=== PATIENT | female | born 1980 | race Caucasian/White ===

== ENCOUNTER 2018-02-14 13:25 | Emergency (ER) | payer BC, OTHER ==
[~2018-02-14] VITALS: Ht 175.3 cm; Wt 83.9 kg
--- NOTE | 2018-02-14 14:24 | ED Chest Pain ---
General Chief Complaint: Dizziness/Syncope Stated Complaint: LIGHTHEADED/LEFT ARM TINGLING SLIGHTLY ELEV BP Nursing Triage Note: PT CO OF DIZZINESS, STATES HAS L ARM TINGLING,AND L SHOULDER PAIN. 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 DOES NOT HAVE TIME TO BE HERE Nursing Sepsis Screen: No Definite Risk Source: patient Exam Limitations: no limitations History of Present Illness Date Seen by Provider: Feb 14, 2018 Time Seen by Provider: 14:09 Initial Comments The patient presents to the ER by private conveyance with chief complaint she is having an episode of narrowing vision, numbness tingling down her left arm and some left chest and shoulder pain. This occurred about 1:30. Since she got to the ER started having some palpitations and chest pain in the middle of her chest that is since resolved. She still having shoulder pain in the tingling and numbness in her left arm. She does not smoke or use recreational drugs. No history of diabetes, hypothyroidism or cholesterol is him. No history primarily of coronary artery disease or cardiac dysrhythmias. She has no primary family history of early onset cardiac disease before the age of 60. She states she was at work having a particular stressful event when this started. She says she's had episodes in the past of heart palpitations and chest discomfort sharp pains especially down her left side of her chest lower but nothing was pronounced. She does have quite a bit of anxiety but she does not use any medicine for it. She follows with Dr. Ruiz at [place]. She is on her period presently she's had a endometrial ablation and her has had a vasectomy. Her periods have been irregular all of her life. She has no history of injury or surgeries or other problems with her neck but she does go to the chiropractor every few months to have her neck worked on. Allergies and Home Medications Allergies Coded Allergies: latex (Verified Allergy, Unknown, 02/14/18) Home Medications No Active Prescriptions or Reported Meds Patient Home Medication List Home Medication List Reviewed: Yes Review of Systems Review of Systems Constitutional: No chills, No diaphoresis EENTM: No Blurred Vision, No Double Vision Respiratory: Denies Cough, Denies Shortness of Air Cardiovascular: See HPI, Chest Pain; Denies Edema, Denies Irregular Heart Rate ; Lightheadedness, Palpitations; Denies Syncope Gastrointestinal: Denies Constipated, Denies Diarrhea, Denies Nausea, Denies Vomiting Genitourinary: Denies Burning, Denies Discharge, Denies Drainage Musculoskeletal: No back pain, No joint pain Skin: No pruritus, No rash Psychiatric/Neurological: Denies Headache, Denies Numbness; Paresthesia (left arm radial distribution) Past Vzrspsc-Mrghtb-Dbbrmr Hx Patient Social History Alcohol Use: Denies Use Recreational Drug Use: No Smoking Status: Never a Smoker Recent Foreign Travel: No Contact w/Someone Who Travel: No Recent Infectious Disease Expo: No Recent Hopitalizations: No Seasonal Allergies Seasonal Allergies: No Past Medical History Surgeries: No Respiratory: No Cardiac: No Neurological: No Genitourinary: No Gastrointestinal: No Musculoskeletal: No Endocrine: No HEENT: No Cancer: No Psychosocial: No Integumentary: No Blood Disorders: No Physical Exam Vital Signs Vital Signs - First Documented 02/14/18 13:40 Temp 97.8 Pulse 82 Resp 18 B/P (MAP) 140/99 (113) Pulse Ox 98 Capillary Refill : Less Than 3 Seconds Height, Weight, BMI Height: 5'9.00" Weight: 185lbs. oz. 83.754239rl; BMI Method:Stated General Appearance: Anxious, Mild Distress HEENT: PERRL/EOMI, Moist Mucous Membranes Neck: Full Range of Motion, Normal Inspection, Non Tender, Supple Respiratory: Chest Non Tender, Lungs Clear, Normal Breath Sounds, No Accessory Muscle Use, No Respiratory Distress Cardiovascular: Regular Rate, Rhythm, No Edema, Normal Peripheral Pulses Gastrointestinal: Normal Bowel Sounds, Non Tender, Soft Extremity: Normal Capillary Refill, Normal Inspection, Non Tender, No Pedal Edema Neurologic/Psychiatric: Alert, Oriented x3, Other (and anxious, tearful) Progress/Results/Core Measures Results/Orders Lab Results Laboratory Tests Test 02/14/18 14:30 Range/Units White Blood Count 6.2 4.3-11.0 10^3/uL Red Blood Count 4.42 4.35-5.85 10^6/uL Hemoglobin 14.1 11.5-16.0 G/DL Hematocrit 41 35-52 % Mean Corpuscular Volume 93 80-99 FL Mean Corpuscular Hemoglobin 32 25-34 PG Mean Corpuscular Hemoglobin Concent 35 32-36 G/DL Red Cell Distribution Width 12.8 10.0-14.5 % Platelet Count 289 130-400 10^3/uL Mean Platelet Volume 9.7 7.4-10.4 FL Neutrophils (%) (Auto) 71 42-75 % Lymphocytes (%) (Auto) 20 12-44 % Monocytes (%) (Auto) 7 0-12 % Eosinophils (%) (Auto) 3 0-10 % Basophils (%) (Auto) 0 0-10 % Neutrophils # (Auto) 4.4 1.8-7.8 X 10^3 Lymphocytes # (Auto) 1.2 1.0-4.0 X 10^3 Monocytes # (Auto) 0.4 0.0-1.0 X 10^3 Eosinophils # (Auto) 0.2 0.0-0.3 10^3/uL Basophils # (Auto) 0.0 0.0-0.1 10^3/uL Sodium Level 140 135-145 MMOL/L Potassium Level 4.0 3.6-5.0 MMOL/L Chloride Level 105 98-107 MMOL/L Carbon Dioxide Level 24 21-32 MMOL/L Anion Gap 11 5-14 MMOL/L Blood Urea Nitrogen 10 7-18 MG/DL Creatinine 1.08 0.60-1.30 MG/DL Estimat Glomerular Filtration Rate 57 BUN/Creatinine Ratio 9 Glucose Level 105 70-105 MG/DL Calcium Level 9.4 8.5-10.1 MG/DL Corrected Calcium 9.0 8.5-10.1 MG/DL Magnesium Level 2.3 1.8-2.4 MG/DL Total Bilirubin 0.6 0.1-1.0 MG/DL Aspartate Amino Transf (AST/SGOT) 15 5-34 U/L Alanine Aminotransferase (ALT/SGPT) 15 0-55 U/L Alkaline Phosphatase 48 40-136 U/L Myoglobin 33.6 10.0-92.0 NG/ML Troponin I < 0.30 <0.30 NG/ML Total Protein 6.8 6.4-8.2 GM/DL Albumin 4.5 3.2-4.5 GM/DL My Orders Orders - FLORIAN XAVIER Cbc With Automated Diff (02/14/18 14:16) Magnesium (02/14/18 14:16) Chest 1 View, Ap/Pa Only (02/14/18 14:16) Ekg Tracing (02/14/18 14:16) Cardiac Profile 1 (02/14/18 14:16) Comprehensive Metabolic Panel (02/14/18 14:16) Myoglobin Serum (02/14/18 14:16) Monitor-Rhythm Ecg Trace Only (02/14/18 14:16) Aspirin Chewable Tablet (Baby Aspirin Ch (02/14/18 14:30) Hydroxyzine Oral (Vistaril Capsule) (02/14/18 14:30) Medications Given in ED Current Medications Medications Dose Ordered Sig/Terry Route Start Time Stop Time Status Last Admin Dose Admin Aspirin 324 mg ONCE ONCE PO 02/14/18 14:30 02/14/18 14:31 DC 02/14/18 14:23 324 MG Vital Signs/I&O 02/14/18 13:40 Temp 97.8 Pulse 82 Resp 18 B/P (MAP) 140/99 (113) Pulse Ox 98 Blood Pressure Mean: 113 Progress Progress Note : Time: 14:23 Progress Note Symptoms consistent with a stress reaction or panic attack. We have offered her Vistaril but she says she has to drive 40 minutes home and Benadryl knocks her out so she would prefer to not take until after she is about ready to leave. We have discussed with her the low risk for any coronary or dysrhythmia but she would prefer to have a workup to alleviate her fears and then she agrees if there is nothing wrong on initial labs that she would follow-up with her primary care doctor as well as look into some other stress management, counseling, medications that we discussed at length with her. She's not having any tenderness in her neck but certainly push on the trapezius on the left side does re-create some of her tingling sensations. Her paraspinous neck muscles are very tight. She's not having any muscular wasting or anything else to suggest that this is a chronic nerve impingement. She is not having any swelling in her arm or erythema or warmth her pain palpation to suggest a DVT. She's having no subjective or objective shortness of breath or cough with hemoptysis nor she on control or smoker so risk factors and evidence for a pulmonary embolism is sufficiently low to Clinically rule her out. Initial ECG Impression Date: Feb 14, 2018 Initial ECG Impression Time: 13:46 Initial ECG Rate: 82 Initial ECG Rhythm: Normal Sinus Initial ECG Intervals: Normal Initial ECG Impression: Normal Comment No ST elevation or depression. Diagnostic Imaging Diagonstic Imaging: Xray Plain Films/CT/US/NM/MRI: chest (1v) Comments VIA [facility] [place] [place], [place] NAME: CHAO LOPEZ [facility] REC#: [id number] PT STATUS: REG ER : 1980 PHYSICIAN: FLORIAN XAVIER MD ADMIT DATE: 02/14/18/ER Draft Date of Exam:02/14/18 CHEST 1 VIEW, AP/PA ONLY Portable erect AP chest at 2:35. Indication: Left arm tingling. There are no prior studies available for comparison. Heart size is within normal limits. The lungs are clear. There is no evidence for failure, pneumonia or for pleural effusion. Mediastinum is not widened. The osseous structures are intact. Impression: There is no evidence for an acute cardiopulmonary abnormality. Dictated on workstation # [id number] Dict: 02/14/18 1448 Trans: 02/14/18 1452 CVB [id number] Interpreted by: OSIRIS QUINONES MD Electronically signed by: Reviewed: Reviewed by Me Departure Impression Primary Impression: Generalized anxiety disorder with panic attacks Disposition: 01 HOME, SELF-CARE Condition: Improved Departure-Patient Inst. Decision time for Depature: 15:40 Referrals: LAI RUIZ MD Patient Instructions: Panic Disorder (DC) Add. Discharge Instructions: Follow-up with your primary care doctor and if he started to have a panic attack again you should take and remove yourself from the situation do some deep breathing exercises like we discussed and take a tablet of Vistaril once every 6 hours as needed to get her symptoms under control. Discussed all the relevant ways of controlling your stress such as medications, counseling, acupuncture, cognitive behavioral therapy, group exercise etc. All discharge instructions reviewed with patient and/or family. Voiced understanding. Scripts Hydroxyzine Pamoate (Vistaril) 25 Mg Capsule 25 MG PO Q6H PRN for ANXIETY for 30 Days, #20 CAP 0 Refills Prov: FLORIAN XAVIER 02/14/18 FLORIAN XAVIER Feb 14, 2018 14:24
[2018-02-14] MEDS ORDERED: hydrOXYzine (VISTARIL) 25 MG CAP PO ONE (14:30)
[2018-02-14] MEDS ORDERED: ASPIRIN 81 MG CHEW (CHILDREN'S ASA) PO ONE (14:30)
[2018-02-14 14:38] LABS: BASOPHILS % (AUTO) 0 % (0-10); EOSINOPHILS # (AUTO) 0.2 10^3/uL (0.0-0.3); EOSINOPHILS % (AUTO) 3 % (0-10); HEMATOCRIT 41 % (35-52); HEMOGLOBIN 14.1 G/DL (11.5-16.0); LYMPHOCYTES # (AUTO) 1.2 X 10^3 (1.0-4.0); LYMPHOCYTES % (AUTO) 20 % (12-44); MEAN CORPUSCULAR HEMOGLOBIN 32 PG (25-34); MEAN CORPUSCULAR HGB CONC 35 G/DL (32-36); MEAN CORPUSCULAR VOLUME 93 FL (80-99); MEAN PLATELET VOLUME 9.7 FL (7.4-10.4); MONOCYTES # (AUTO) 0.4 X 10^3 (0.0-1.0); MONOCYTES % (AUTO) 7 % (0-12); NEUTROPHILS # (AUTO) 4.4 X 10^3 (1.8-7.8); NEUTROPHILS % (AUTO) 71 % (42-75); PLATELET COUNT 289 10^3/uL (130-400); RED BLOOD COUNT 4.42 10^6/uL (4.35-5.85); RED CELL DISTRIBUTION WIDTH 12.8 % (10.0-14.5); WHITE BLOOD COUNT 6.2 10^3/uL (4.3-11.0)
--- NOTE | 2018-02-14 14:52 | Diagnostic Imaging Report ---
Portable erect AP chest at 2:35. Indication: Left arm tingling. There are no prior studies available for comparison. Heart size is within normal limits. The lungs are clear. There is no evidence for failure, pneumonia or for pleural effusion. Mediastinum is not widened. The osseous structures are intact. Impression: There is no evidence for an acute cardiopulmonary abnormality. Dictated by: Dictated on workstation # [id number]
[2018-02-14 15:01] LABS: ALANINE AMINOTRANSFERASE 15 U/L (0-55); ALBUMIN 4.5 GM/DL (3.2-4.5); ALKALINE PHOSPHATASE 48 U/L (40-136); BILIRUBIN,TOTAL 0.6 MG/DL (0.1-1.0); BUN/CREATININE RATIO 9; CALCIUM 9.4 MG/DL (8.5-10.1); CARBON DIOXIDE 24 MMOL/L (21-32); CHLORIDE 105 MMOL/L (98-107); CREATININE SERUM 1.08 MG/DL (0.60-1.30); GFR ESTIMATED 57; GLUCOSE 105 MG/DL (70-105); MAGNESIUM 2.3 MG/DL (1.8-2.4); SODIUM 140 MMOL/L (135-145); TOTAL PROTEIN 6.8 GM/DL (6.4-8.2)
[2018-02-14 15:07] LABS: MYOGLOBIN SERUM 33.6 NG/ML (10.0-92.0)
[2018-02-14] MEDS ORDERED: HYDR25CA PO (15:43)
[2018-02-14 15:50] VITALS: BP 134/90
== END 2018-02-14 15:50 | disposition home or self-care (01) ==
LOC: ER 13:28
DX: F41.0 Panic disorder [episodic paroxysmal anxiety] (principal); R07.9 Chest pain, unspecified; Z91.040 Latex allergy status
CPT/HCPCS: 36415; 71045; 80053; 83735; 83874; 84484; 85025; 93005; 93041

== ENCOUNTER 2019-11-05 05:39 | Outpatient (RCR) | payer BC ==
[~2019-11-05] VITALS: Ht 175 cm; Wt 90.9 kg
[~2019-11-05 05:39] MED LIST: HYDR25CA PO
[2019-11-05] MEDS ORDERED: DOCU100T7 PO (08:48)
[2019-11-05] MEDS ORDERED: CITA20TA12 PO (08:48)
== END 2019-11-05 14:40 | disposition home or self-care (01) ==
LOC: PREOP 05:39
PROVIDERS: ATTEND Obstetrics & Gynecology
DX: Z01.812 Encounter for preprocedural laboratory examination (principal); Z11.59 Encounter for screening for other viral diseases; N92.1 Excessive and frequent menstruation with irregular cycle; N94.6 Dysmenorrhea, unspecified
CPT/HCPCS: 87635

== ENCOUNTER 2019-11-08 06:19 | Day surgery (SDC) | payer BC ==
[2019-11-08] VITALS (13 sets, daily range): BP systolic 103–139; BP diastolic 58–91
[~2019-11-08] VITALS: Ht 175 cm; Wt 90.9 kg
[~2019-11-08 06:19] MED LIST changes: +CITA20TA12 PO; +DOCU100T7 PO
[2019-11-08] MEDS ORDERED: LIDOCAINE/EPI 2% 1:100,00 (XYLOCAINE) 20 ML VIAL ONE (06:38)
[2019-11-08] MEDS ORDERED: ESTROGENS CONJ. CREAM 30 GM (PREMARIN) TUBE ONE (06:38)
--- NOTE | 2019-11-08 06:59 | History & Physical-OB/GYN ---
History of Present Illness History of Present Illness Reason for visit/HPI Ms. Nieves presented to the hospital for scheduled surgery, Total Vaginal Hysterectomy secondary to heavy, painful vaginal bleeding. Also, it was noted that she a fluid collection inside her uterus attributed to her ablation Date of Admission Nov 08, 2019 at 06:19 Date Seen by a Provider: Nov 08, 2019 Time Seen by a Provider: 06:45 I consulted on this patient on 11/08/19 06:54 Attending Physician Temo Mcrae DO Admitting Physician Temo Mcrae DO Consult Allergies and Home Medications Allergies Coded Allergies: latex (Verified Allergy, Mild, RASH/ITCHING, 11/05/19) Home Medications Citalopram Hydrobromide 20 Mg Tablet, 20 MG PO DAILY, (Reported) Docusate Sodium 100 Mg Tablet, 200 MG PO HS, (Reported) Patient Home Medication List Home Medication List Reviewed: Yes Past Gdszusu-Vhppbn-Emwnkv Hx Patient Social History Marrital Status: Number of Children: 3 Number of living children: 3 Employed/Student: employed Alcohol Use: Denies Use Recreational Drug Use: No Smoking Status: Never a Smoker 2nd Hand Smoke Exposure: No Recent Foreign Travel: No Contact w/other who traveled: No Recent Hopitalizations: No Immunizations Up To Date Date of Influenza Vaccine: Mar 12, 2019 Seasonal Allergies Seasonal Allergies: No Surgeries Yes (UTERINE ABLATION) Respiratory No Cardiovascular No Neurological Yes Headaches /Migraines Reproductive System Sexually Transmitted Disease: No HIV/AIDS: No Female Reproductive Disorders: Menstrual Problems Genitourinary No Gastrointestinal Yes Chronic Constipation, Chronic Diarrhea, Irritable Bowel Musculoskeletal No Endocrine History of Endocrine Disorders: No HEENT History of HEENT Disorders: Yes (GLASSES/CONTACTS) Loss of Vision: Denies Hearing Impairment: Denies Cancer No Psychosocial History of Psychiatric Problem: Yes Behavioral Health Disorders: Anxiety Integumentary History of Skin or Integumenta: No Blood Transfusions History of Blood Disorders: No Adverse Reaction to a Blood Tr: No (N/A) Review of Systems Constitutional: see HPI Physical Exam Physical Exam Vital Signs Capillary Refill : General Appearance: No Apparent Distress, WD/WN Respiratory: Chest Non Tender, Lungs Clear, Normal Breath Sounds Cardiovascular: Regular Rate, Rhythm, No Murmur Abdominal: normal bowel sounds, non tender, soft Vagina: WNL Cervix: WNL Uterus: WNL Extremity: Normal Inspection, Non Tender, No Calf Tenderness Assessment/Plan Assessment and Plan Assessment: Menometrorrhagia 2. Dysmenorrhea 3. Pelvic Pain 4. Uterine Fluid Plan: Ms. Nieves is scheduled for surgery, Total Vaginal Hysterectomy with possible Bilateral Salpingo-oophorectomy. We reviewed the procedure and its associated risks. All questions were answered. Admission Diagnosis Admission Status: Inpatient Order (span 2 midnights) Reason for Inpatient Admission: Scheduled surgery, Total Vaginal Hysterectomy possible Bilateral Salpingo-oophorectomy TEMO MCRAE DO Nov 08, 2019 06:59
[2019-11-08] MEDS ORDERED: metroNIDAZOLE 500MG/100ML IVPB 100 ML IV ONE (07:00)
[2019-11-08] MEDS ORDERED: ceFAZolin 2 GM IV Premixed 50 ML IV ONE (07:00)
[2019-11-08] MEDS ORDERED: ROCURONIUM 10 MG/ML 5 ML SYRINGE IV ONE (07:06)
[2019-11-08] MEDS ORDERED: proPOfol 200 MG/20 ML (DIPRIVAN) VIAL IV ONE (07:06)
[2019-11-08] MEDS ORDERED: SEVOFLURANE (ULTANE) 15 ML INHAL SOLN ONE (07:06)
[2019-11-08] MEDS ORDERED: MIDAZOLAM 2 MG/2 ML (VERSED) VIAL ONE (07:07)
[2019-11-08] MEDS ORDERED: fentaNYL INJECTION 100 MCG/2 ML AMP ONE (07:07)
[2019-11-08] MEDS: LACTATED RINGERS 1,000 ML IV PRN ×2 (07:10→08:30)
[2019-11-08] MEDS ORDERED: CATHETER FLUSH 10 ML SYR IV PRN (07:15)
[2019-11-08] MEDS ORDERED: DEXAMETHASONE 10 MG/ML (DECADRON) 1 ML VIAL ONE (08:18)
[2019-11-08] MEDS ORDERED: ONDANSETRON 4 MG/2 ML (SDV) Z0FRAN ONE (08:18)
[2019-11-08] MEDS ORDERED: ONDANSETRON 4 MG/2 ML (SDV) Z0FRAN IVP PRN ×2 (08:30→08:45)
[2019-11-08] MEDS ORDERED: KETOROLAC 30 MG/ML VIAL IVP ONE (08:30)
[2019-11-08] MEDS ORDERED: fentaNYL INJECTION 100 MCG/2 ML AMP IVP PRN (08:30)
[2019-11-08] MEDS ORDERED: morphine INJ 10 MG/ML 1ML (SYR OR VIAL) IVP ONE (08:45)
[2019-11-08] MEDS ORDERED: MEPERIDINE (DEMEROL) INJ 50 MG/ML IVP ONE (08:45)
--- NOTE | 2019-11-08 08:50 | OB/GYN Operative Report ---
Operative Report Date of Procedure:Nov 08, 2019 Preoperative Diagnosis: [Menometrorrhagia 2. Dysmenorrhea 3. Pelvic Pain] Postoperative Diagnosis: [Same as above Name of the Procedure: [Total Vaginal Hysterectomy] Surgeon: Temo Mcrae Solar Sales Advisor(s): [none] Anesthesia: [General] Indications for Procedure: [Menometrorrhagia, Dysmenorrhea, Pelvic Pain] Findings of the Procedure: [Normal appearing uterus, fallopian tubes, and ovaries] Name and Description of the Procedure: [Total Vaginal Hysterectomy] Ms. Nieves was taken to the Operating Room with IV fluids running. Once in the OR, general anesthesia was administered without difficulty. She was then placed in the dorsal lithotomy position, prepped and draped in the normal sterile fashion. A Kiran Catheter was inserted. A weighted speculum was introduced into the vaginal vault. The cervix was grasped with a single toothed tenaculum. Then, circumferentially injected with local anesthesia with epinephrine. Utilizing a scalpel, an circumferential incision was made completely around the cervix. Manually, the cervicovaginal tissue was dissected off the anterior portion of the cervix. The anterior cul de sac was entered manually. A right angle retractor was placed through the space as to displace the bladder from the surgical field. The posterior cul de sac was entered sharply and the weighted speculum was replaced with a "ski-slope" weight speculum. The uterosacral cardinal ligament was then clamped on both sides, transected and suture ligated with 0-Vicryl. The broad ligament on both sides were serial clamped, cut and suture ligated with 0-Vicryl. The coronal edge of the uterus was then clamped and cut with delivery of the uterus. The pedicles were suture ligated with 0- Vicryl. The fallopian tubes and ovaries were visualized--appeared normal. The peritoneum was purse string closed with a 3-0 Vicryl. The vaginal cuff was closed with 0-Vicryl attached to the uterosacral ligament. The vaginal vault was packed with vaginal packing moistened with Premarin Vaginal Cream. Sponge, instrument, and needle counts were correct x 3. Ms. Nieves was taken to the Recovery Room in good and stable condition. Complications: None Disposition: [Revovery Room EBL: Minimal IV Fluids: 1100 ml] TEMO MCRAE DO Nov 08, 2019 08:50
[2019-11-08] MEDS: LACTATED RINGERS 1,000 ML IV SCH ×3 (09:06→23:34)
--- NOTE | 2019-11-08 09:30 | NUR ---
CHAO LOPEZ presented to unit via BED from RECOVERY, accompanied by BRITNI BANK WORKER AND Bulmaro ROBLES, FACTORY HAND AFTER HAVING SURGERY PER DR. MOELLER. VS taken. REPORT RECEIVED. CHAO LOPEZ oriented to bed controls, call light, TV, heat, and A/C controls.
[2019-11-08] MEDS ORDERED: KETOROLAC 30 MG/ML VIAL ONE (09:39)
--- NOTE | 2019-11-08 09:50 | NUR ---
VS OBTAINED. INITIAL SHIFT ASSESSMENT COMPLETED; SEE INTERVENTION FOR FURTHER. GALLAGHER TO D/D. SCDS ON CALVES BILATERALLY. IV TUBING CONVERTED TO PUMP TUBING, LR (FROM RECOVERY) INFUSING @ 125 ML/HR/PUMP. FRESH ICE WATER PROVIDED. TORADOL GIVEN IVP; SEE EMAR FOR FURTHER. BLINDS SHUT, PT TO REST. CALL LIGHT WITHIN REACH.
[2019-11-08] MEDS ORDERED: oxyCODONE/APAP 5/325MG (PERCOCET 5) TABLET ONE (10:34)
[2019-11-08] MEDS ORDERED: LORazepam INJ 2 MG/ML (ATIVAN) VIAL ONE (10:36)
--- OUTSIDE RECORDS SUMMARY | 2019-11-08 10:37 | XMS REPORT | Continuity of Care Document ---
Author Organization Unknown Address Unknown Phone Unavailable Allergies Active Description Code Type Severity Reaction Onset Reported/Identified Relationship to Patient Clinical Status Yes latex [id number] Drug Allergy Unknown N/A 02/14/2018 Yes latex [id number] Drug Allergy Mild RASH/ITCHING 11/05/2019 Medications There is no data. Problems Date Dx Coded Attending Type Code Diagnosis Diagnosed By 05/05/1439 SEALS DO, CRISELDA E Ot N92.1 EXCESSIVE AND FREQUENT MENSTRUATION WITH 05/05/1439 SEALS DO, CRISELDA E Ot N94.6 DYSMENORRHEA, UNSPECIFIED 05/05/1439 SEALS DO, CRISELDA E Ot Z01.8 12 ENCOUNTER FOR PREPROCEDURAL LABORATORY E 05/05/1439 SEALS DO, CRISELDA E Ot Z11.5 9 ENCOUNTER FOR SCREENING FOR OTHER VIRAL 02/14/2018 FLORIAN XAVIER MD Ot F41. 0 PANIC DISORDER [EPISODIC PAROXYSMAL ANXI 02/14/2018 FLORIAN XAVIER MD Ot R07. 9 CHEST PAIN, UNSPECIFIED 02/14/2018 FLORIAN XAVIER MD Ot R20. 0 ANESTHESIA OF SKIN 02/14/2018 FLORIAN XAVIER MD Ot Z91.040 LATEX ALLERGY STATUS 02/16/2018 FLORIAN XAVIER MD Ot F41. 0 PANIC DISORDER [EPISODIC PAROXYSMAL ANXI 02/16/2018 FLORIAN XAVIER MD Ot R07. 9 CHEST PAIN, UNSPECIFIED 02/16/2018 FLORIAN XAVIER MD Ot R20. 0 ANESTHESIA OF SKIN 02/16/2018 FLORIAN XAVIER MD Ot Z91.040 LATEX ALLERGY STATUS 11/05/2019 SEALS DO, CRISELDA E Ot N92.1 EXCESSIVE AND FREQUENT MENSTRUATION WITH 11/05/2019 SEALS DO, CRISELDA E Ot N94.6 DYSMENORRHEA, UNSPECIFIED 11/05/2019 SEALS DO, CRISELDA E Ot Z01.8 12 ENCOUNTER FOR PREPROCEDURAL LABORATORY E 11/05/2019 SEALS DO, CRISELDA E Ot Z11.5 9 ENCOUNTER FOR SCREENING FOR OTHER VIRAL Procedures There is no data. Results Test Result Range Complete blood count (CBC) with automate d white blood cell (WBC) differential - 02/14/18 14:30 Blood leukocytes automated count (number/volume) 6.2 10*3/uL 4.3-11.0 Blood erythrocytes automated count (number/volume) 4.42 10*6/uL 4.35-5.85 Venous blood hemoglobin measurement (mass/volume) 14.1 g/dL 11.5-16.0 Blood hematocrit (volume fraction) 41 % 35-52 Automated erythrocyte mean corpuscular volume 93 [ foz_us] 80-99 Automated erythrocyte mean corpuscular h emoglobin (mass per erythrocyte) 32 pg 25-34 Automated erythrocyte mean corpuscular h emoglobin concentration measurement (mass/volume) 35 g/dL 32-36 Automated erythrocyte distribution width ratio 12. 8 % 10.0- 14.5 Automated blood platelet count (count/volume) 289 10*3/uL 130-400 Automated blood platelet mean volume measurement 9.7 [foz_us] 7.4-10.4 Automated blood neutrophils/100 leukocytes 71 % 42-75 Automated blood lymphocytes/100 leukocytes 20 % 12-44 Blood monocytes/100 leukocytes 7 % 0-12 Automated blood eosinophils/100 leukocytes 3 % 0-10 Automated blood basophils/100 leukocytes 0 % 0-10 Blood neutrophils automated count (number/volume) 4.4 10*3 1.8-7.8 Blood lymphocytes automated count (number/volume) 1.2 10*3 1.0-4.0 Blood monocytes automated count (number/volume) 0. 4 10*3 0.0-1.0 Automated eosinophil count 0.2 10*3/uL 0 .0-0.3 Automated blood basophil count (count/volume) 0.0 10*3/uL 0.0-0.1 Comprehensive metabolic panel - 02/14/18 14:30 Serum or plasma sodium measurement (moles/volume) 140 mmol/L 135-145 Serum or plasma potassium measurement (moles/volume) 4.0 mmol/L 3.6-5.0 Serum or plasma chloride measurement (moles/volume) 105 mmol/L 98-107 Carbon dioxide 24 mmol/L 21-32 Serum or plasma anion gap determination (moles/volume) 11 mmol/L 5-14 Serum or plasma urea nitrogen measurement (mass/volume ) 10 mg/dL 7-18 Serum or plasma creatinine measurement (mass/volume) 1.08 mg/dL 0.60-1.30 Serum or plasma urea nitrogen/creatinine mass ratio 9 NRG Serum or plasma creatinine measurement w ith calculation of estimated glomerular filtration rate 57 NRG Serum or plasma glucose measurement (mass/volume) 105 mg/dL 70-105 Serum or plasma calcium measurement (mass/volume) 9.4 mg/dL 8.5-10.1 Serum or plasma total bilirubin measurement (mass/volu me) 0.6 mg/dL 0.1-1.0 Serum or plasma alkaline phosphatase brennan surement (enzymatic activity/volume) 48 U/L 40-136 Serum or plasma aspartate aminotransfera se measurement (enzymatic activity/volume) 15 U/L 5-34 Serum or plasma alanine aminotransferase measurement (enzymatic activity/volume) 15 U/L 0-55 Serum or plasma protein measurement (mass/volume) 6.8 g/dL 6.4-8.2 Serum or plasma albumin measurement (mass/volume) 4.5 g/dL 3.2-4.5 CALCIUM CORRECTED 9.0 mg/dL 8.5-10.1 Magnesium - 02/14/18 14:30 Magnesium 2.3 mg/dL 1.8-2.4 Serum or plasma troponin i.cardiac measu rement (mass/volume) - 02/14/18 14:30 Serum or plasma troponin i.cardiac measurement (mass/v olume) < ng/mL <0.30 Myoglobin, serum - 02/14/18 14:30 Myoglobin, serum 33.6 ng/mL 10.0-92.0 SUREPATH PAP RFX HPV mRNA E6/E7 - 10:43 CLINICAL INFORMATION: NRG LMP: NRG PREV. PAP: NRG PREV. BX: NRG SOURCE: [employer] NR STATEMENT OF ADEQUACY: NR INTERPRETATION/RESULT: NR BOOM CRANE OPERATOR: YESENIA COMMENT NRG CBC - 11/02/19 11:44 WHITE BLOOD CELL COUNT 6.9 Thousand/uL 3 .8-10.8 RED BLOOD CELL COUNT 4.59 Million/uL 3.8 0-5.10 HEMOGLOBIN 14.3 g/dL 11.7-15.5 HEMATOCRIT 43.3 % 35.0-45.0 MCV 94.3 fL 80.0-100.0 MCH 31.2 pg 27.0-33.0 MCHC 33.0 g/dL 32.0-36.0 RDW 12.0 % 11.0-15.0 PLATELET COUNT 254 Thousand/uL 140-400 MPV 9.9 fL 7.5-12.5 ABSOLUTE NEUTROPHILS 4264 cells/uL 1500- 7800 ABSOLUTE LYMPHOCYTES 1815 cells/uL 850-3 900 ABSOLUTE MONOCYTES 587 cells/uL 200-950 ABSOLUTE EOSINOPHILS 186 cells/uL 15-500 ABSOLUTE BASOPHILS 48 cells/uL 0-200 NEUTROPHILS 61.8 % NRG LYMPHOCYTES 26.3 % NRG MONOCYTES 8.5 % NRG EOSINOPHILS 2.7 % NRG BASOPHILS 0.7 % NRG BLOOD TPYE/RH FACTOR - 11/02/19 11:44 ABO GROUP B NRG RH TYPE RH(D) POSITIVE NRG Coronavirus SARS-CoV-2 SO 2018 - 0 13:24 Coronavirus Ab [Units/volume] in Serum Negative Negative Encounters ACCT No. Visit Date/Time Discharge Status Pt. Type Provider Facility Loc./Unit Complaint [id number] 11/06/2019 14:00:00 [facility] [id number] 11/02/2019 11:00:00 Document Registration [id number] 01/11/2019 10:30:00 Document Registration [id number] 11/05/2019 05:39:00 020 14:40:00 DIS Outpatient CRISELDA MOELLER DO [facility] PREOP PELVIC PAIN [id number] 02/14/2018 13:28:00 018 23:59:59 CLS Emergency MORENITA PALMER, FLORIAN Simental [facility] ER LIGHTHEADED/LEFT ARM TI NGLING SLIGHTLY ELEV BP [id number] 11/08/2019 06:19:[address] Inpatient CRISELDA MOELLER DO [facility] SURG PELVIC PAIN
[2019-11-08] MEDS: oxyCODONE/APAP 5/325MG (PERCOCET 5) TABLET PO SCH ×3 (10:39→22:07)
--- NOTE | 2019-11-08 10:40 | NUR ---
S/O @ PT'S BEDSIDE. VS OBTAINED. PT REQUESTING PAIN MEDICATION. RANDALL FIORE @ BEDSIDE. MEDS GIVEN; SEE EMAR FOR FURTHER. NO FURTHER NEEDS VOICED. CALL LIGHT WITHIN REACH.
[2019-11-08] MEDS ORDERED: LORazepam INJ 2 MG/ML (ATIVAN) VIAL IVP ONE (11:00)
[2019-11-08] MEDS: METOCLOPRAMIDE 10 MG (REGLAN) TAB PO SCH ×3 (12:35→23:34)
[2019-11-08] MEDS: ONDANSETRON 4 MG (ZOFRAN) ORAL DISSOLVE TAB PO SCH ×2 (14:22→22:07)
--- NOTE | 2019-11-08 14:22 | NUR ---
PT RESTING ON HER SIDE. ZOFRAN GIVEN; SEE EMAR FOR FURTHER. EXTRA PILLOW PROVIDED PER REQUEST. S/O REMAINS @ THE BEDSIDE. PT DENIES ANY FURTHER NEEDS AT THIS TIME. CALL LIGHT WITHIN REACH.
[2019-11-08] MEDS: IBUPROFEN 800 MG (MOTRIN) TAB PO SCH ×2 (16:06→23:34)
--- NOTE | 2019-11-08 19:52 | NUR ---
Pt resting on her side, POC discussed and no concerns at this time.
[2019-11-08] MEDS ORDERED: ZOLPIDEM 5 MG (AMBIEN) TAB PO SCH (21:00)
[2019-11-09 05:00] VITALS: BP 109/64
[2019-11-09] MEDS ORDERED: MILK OF MAGNESIA 400 MG/5 ML 30 ML UDC PO ONE (05:00)
[2019-11-09] MEDS ORDERED: BISACODYL 10 MG SUPP (DULCOLAX) PR ONE (05:00)
[2019-11-09] MEDS: oxyCODONE/APAP 5/325MG (PERCOCET 5) TABLET PO SCH ×2 (05:01→09:00)
[2019-11-09] MEDS: METOCLOPRAMIDE 10 MG (REGLAN) TAB PO SCH (05:01)
--- NOTE | 2019-11-09 06:19 | NUR ---
Pt up to BR, pt passing gas and voided without incidence. Pt up to ambulate in the jose.
[2019-11-09 06:53] LABS: BASOPHILS % (AUTO) 0 % (0-10); EOSINOPHILS % (AUTO) 0 % (0-10); HEMATOCRIT 36 % (35-52); HEMOGLOBIN 12.4 G/DL (11.5-16.0); LYMPHOCYTES # (AUTO) 1.7 X 10^3 (1.0-4.0); LYMPHOCYTES % (AUTO) 15 % (12-44); MEAN CORPUSCULAR HEMOGLOBIN 32 PG (25-34); MEAN CORPUSCULAR HGB CONC 34 G/DL (32-36); MEAN CORPUSCULAR VOLUME 94 FL (80-99); MEAN PLATELET VOLUME 10.4 FL (7.4-10.4); MONOCYTES % (AUTO) 8 % (0-12); NEUTROPHILS # (AUTO) 8.9 X 10^3 (1.8-7.8); NEUTROPHILS % (AUTO) 77 % (42-75); PLATELET COUNT 216 10^3/uL (130-400); RED CELL DISTRIBUTION WIDTH 12.4 % (10.0-14.5); WHITE BLOOD COUNT 11.6 10^3/uL (4.3-11.0)
[2019-11-09 08:00] VITALS: BP 122/71
[2019-11-09] MEDS: IBUPROFEN 800 MG (MOTRIN) TAB PO SCH (08:00)
--- NOTE | 2019-11-09 08:00 | NUR ---
Dr Mcrae at bedside. Pt is currently eating regular breakfast after BM this AM. Pt plans to walk to jose after eating breakfast. This RN does physical assessment, VSS, motrin given
[2019-11-09] MEDS ORDERED: ACET325C7 PO (08:06)
[2019-11-09] MEDS ORDERED: IBUP-1780 PO (08:06)
[2019-11-09] MEDS ORDERED: OXYC1TAB87 PO (08:06)
[2019-11-09] MEDS ORDERED: DCS100C PO (08:06)
--- NOTE | 2019-11-09 08:11 | Discharge Summary ---
Diagnosis/Chief Complaint Date of Admission Nov 08, 2019 at 06:19 Date of Discharge November 09, 2019 Discharge Date: Nov 09, 2019 Discharge Time: 09:00 Admission Diagnosis Admission Diagnosis Menometrorrhagia 2. Dysmenorrhea 3. Pelvic Pain Discharge Diagnosis Menometrorrhagia 2. Dysmenorrhea 3. Pelvic Pain Reason Hospital Visit Ms. Nieves presented to the hospital for scheduled surgery, Total Vaginal Hysterectomy secondary to heavy, painful vaginal bleeding. Also, it was noted that she a fluid collection inside her uterus attributed to her ablation Discharge Summary Hospital Course Was the Problem List Reviewed?: Yes Hospital Course Ms. Nieves was admitted for scheduled surgery, Total Vaginal Hysterectomy. The surgery was performed without complications. Postoperatively, she was placed on IV and oral pain medications and other comfort measures were instituted. Her day of surgery was unremarkable. Postoperative Day #1, Ms. Nieves was ambulating, voiding, moving her bowels, tolerating a Regular Diet and controlling her pain with oral medications. Her vital signs remained stable throughout her hospitalization. The remainder her hospitalization was unremarkable. I will discharge her to home with instructions, prescriptions, and a follow up appointment. Labs Laboratory Tests 11/09/19 05:48: White Blood Count 11.6H, Red Blood Count 3.86L, Neutrophils (%) (Auto) 77H, Neutrophils # (Auto) 8.9H Procedures None. Discharge Physical Examination Allergies: Coded Allergies: latex (Verified Allergy, Mild, RASH/ITCHING, 11/05/19) Vitals & I&Os Vital Signs Date Time Temp Pulse Resp B/P (MAP) Pulse Ox O2 Delivery O2 Flow Rate FiO2 11/09/19 05:00 36.6 97 18 109/64 (79) 98 Room Air 11/08/19 09:10 8 General Appearance: Alert, Oriented X3, Cooperative HEENT: Atraumatic Respiratory: Clear to Auscultation, Normal Air Movement Cardiovascular: Regular Rate, No Murmurs Abdominal: Normal Bowel Sounds, Soft Extremities: No Clubbing, No Cyanosis Skin: No Rashes Neuro: Normal Gait, Normal Speech Psych/Mental Status: Mental Status NL Discharge Home Medications Reviewed and agree with Discharge Medication list on patient's Discharge Instru ction sheet Instructions to Patient/Family Please see electronic discharge instructions given to patient. Clinical Quality Measures DVT/VTE Risk/Contraindication: Risk Factor Score Per Nursin RFS Level Per Nursing on Admit: 4+=Very High CRISELDA MOELLER DO Nov 09, 2019 08:11
[2019-11-09] MEDS ORDERED: DOCUSATE SODIUM 100 MG (COLACE) CAP PO SCH (09:00)
[2019-11-09] MEDS ORDERED: ESTRADIOL 1 MG TAB (ESTRACE) PO SCH (09:00)
--- NOTE | 2019-11-09 10:51 | Anesthesia-General Post-Op ---
General Patient Condition Mental Status/LOC: Same as Preop Cardiovascular: Satisfactory Nausea/Vomiting: Absent Respiratory: Satisfactory Pain: Controlled Complications: Absent Post Op Complications Complications None Follow Up Care/Instructions Patient Instructions None needed. Anesthesia/Patient Condition Patient Condition Patient is already discharged to home, but she was doing well, no complaints, stable vital signs, no apparent adverse anesthesia problems prior to her discharge per nursing staff. HOMA AHUJA DO Nov 09, 2019 10:51
--- OUTSIDE RECORDS SUMMARY | 2019-11-26 11:01 | XMS REPORT | Continuity of Care Document ---
Author Organization Unknown Address Unknown Phone Unavailable Allergies Active Description Code Type Severity Reaction Onset Reported/Identified Relationship to Patient Clinical Status Yes latex [id number] Drug Allergy Unknown N/A 02/14/2018 Yes latex [id number] Drug Allergy Mild RASH/ITCHING 11/05/2019 Medications There [...] NR STATEMENT OF ADEQUACY: NR INTERPRETATION/RESULT: NR PAYROLL SPECIALIST: YESENIA COMMENT NRG CBC - 11/02/19 11:44 [...] Coronavirus Ab [Units/volume] in Serum Negative Negative Methicillin resistant Staphylococcus aur eus (MRSA) screening culture - 11/08/19 06:52 Methicillin resistant Staphylococcus aureus (MRSA) scr eening culture NEG NRG Blood type T Indirect antibody screen pa ashanti - 11/08/19 07:05 WRISTBAND NUMBER [id number] NRG ABO+Rh group BP NRG Blood group antibody screen NEGATIVE NR G Complete blood count (CBC) with automate d white blood cell (WBC) differential - 11/09/19 05:48 Blood leukocytes automated count (number/volume) 11.6 10*3/uL 4.3-11.0 Blood erythrocytes automated count (number/volume) 3.86 10*6/uL 4.35-5.85 Venous blood hemoglobin measurement (mass/volume) 12.4 g/dL 11.5-16.0 Blood hematocrit (volume fraction) 36 % 35-52 Automated erythrocyte mean corpuscular volume 94 [ foz_us] 80-99 Automated erythrocyte mean corpuscular h emoglobin (mass per erythrocyte) 32 pg 25-34 Automated erythrocyte mean corpuscular h emoglobin concentration measurement (mass/volume) 34 g/dL 32-36 Automated erythrocyte distribution width ratio 12. 4 % 10.0- 14.5 Automated blood platelet count (count/volume) 216 10*3/uL 130-400 Automated blood platelet mean volume measurement 10.4 [foz_us] 7.4-10.4 Automated blood neutrophils/100 leukocytes 77 % 42-75 Automated blood lymphocytes/100 leukocytes 15 % 12-44 Blood monocytes/100 leukocytes 8 % 0-12 Automated blood eosinophils/100 leukocytes 0 % 0-10 Automated blood basophils/100 leukocytes 0 % 0-10 Blood neutrophils automated count (number/volume) 8.9 10*3 1.8-7.8 Blood lymphocytes automated count (number/volume) 1.7 10*3 1.0-4.0 Blood monocytes automated count (number/volume) 1. 0 10*3 0.0-1.0 Automated eosinophil count 0.0 10*3/uL 0 .0-0.3 Automated blood basophil count (count/volume) 0.0 10*3/uL 0.0-0.1 Encounters ACCT No. Visit Date/Time Discharge Status Pt. Type Provider Facility Loc./Unit Complaint [id number] 11/16/2019 08:45:00 11/16/2019 23:59: 59 CLS Outpatient [facility] [id number] 11/02/2019 11:00:00 Document Registration [id number] 01/11/2019 10:30:00 Document Registration [id number] 11/08/2019 06:19:00 09:15:00 DIS Inpatient CRISELDA MOELLER DO [facility] WS PELVIC PAIN [id number] 11/05/2019 05:39:00 14:40:00 DIS Outpatient CRISELDA MOELLER DO [facility] PREOP PELVIC PAIN [id number] 02/14/2018 13:28:00 23:59:59 CLS Emergency MORENITA PALMER, FLORIAN Simental [facility] ER LIGHTHEADED/LEFT ARM TI NGLING SLIGHTLY ELEV BP
== END 2019-11-09 09:15 | disposition home or self-care (01) ==
LOC: 4TH 06:19 → UNDOADMIN 06:19 → WS 06:19 → SDC 06:19 → 4TH 06:20 → SURG 06:20 → EDSTATUS 07:30 → WS 09:26 → SURG 09:26 → UNDODISIN 11-09 09:15 → SDC 11-09 09:15
PROVIDERS: ATTEND Obstetrics & Gynecology
DX: D25.1 Intramural leiomyoma of uterus (principal); N80.0 Endometriosis of uterus; N72 Inflammatory disease of cervix uteri; K58.9 Irritable bowel syndrome, unspecified; F32.9 Major depressive disorder, single episode, unspecified; Z79.899 Other long term (current) drug therapy; Z91.040 Latex allergy status
CPT/HCPCS: 36415; 84703; 85025; 86850; 86900; 86901; 87081; 88307; 94664

== ENCOUNTER 2020-04-04 05:30 | Outpatient (RCR) | payer BC ==
[~2020-04-04] VITALS: Ht 175 cm; Wt 90.9 kg
[~2020-04-04 05:30] MED LIST changes: +ACET325C7 PO; +DCS100C PO; +IBUP-1780 PO; +OXYC1TAB87 PO
== END 2020-04-04 11:08 | disposition home or self-care (01) ==
LOC: PREOP 05:30
PROVIDERS: ATTEND Surgery
DX: Z01.812 Encounter for preprocedural laboratory examination (principal); R19.4 Change in bowel habit; Z20.828 Contact with and (suspected) exposure to other viral communicable diseases
CPT/HCPCS: 87635

== ENCOUNTER 2020-04-08 07:51 | Day surgery (SDC) | payer BC ==
[~2020-04-08] VITALS: Ht 175 cm; Wt 91.0 kg
[2020-04-08] MEDS ORDERED: LACTATED RINGERS 1,000 ML IV STA (08:02)
[2020-04-08] MEDS ORDERED: LACTATED RINGERS 1,000 ML IV ONE (08:06)
[2020-04-08] MEDS ORDERED: MIDAZOLAM 2 MG/2 ML (VERSED) VIAL ONE (08:10)
[2020-04-08] MEDS ORDERED: PROPOFOL INJECTION 50 ML IV ONE ×2 (08:10→09:31)
[2020-04-08 08:15] VITALS: BP 120/86
[2020-04-08 09:35] VITALS: BP 106/70
[2020-04-08 09:40] VITALS: BP 95/62
--- NOTE | 2020-04-08 09:41 | Progress Note-Post Operative ---
Post-Operative Progess Note Surgeon (s)/Volleyball Assistant Coach (s) Surgeon ELLIE DELANEY DO Volleyball Assistant Coach: na Pre-Operative Diagnosis change in bowel habits Post-Operative Diagnosis normal colon Procedure & Operative Findings Date of Procedure 04/08/20 Procedure Performed/Findings colonoscopy Anesthesia Type per [facility] Estimated Blood Loss Estimated blood loss (mL): none Specimens/Packing Specimens Removed na ELLIE DELANEY DO Apr 08, 2020 09:41
--- NOTE | 2020-04-08 09:43 | Discharge Inst-Simple/Standard ---
Discharge Inst-Standard Patient Instructions/Follow Up Plan of Care/Instructions/FU: [place] on as needed basis. Eat high fiber diet. If no improvement after a month call and be seen. Any issues before that be seen at that time. Activity as Tolerated: Yes Discharge Diet: Regular Diet (high fiber) ELLIE DELANEY DO Apr 08, 2020 09:43
[2020-04-08 09:45] VITALS: BP 111/63
[2020-04-08 10:15] VITALS: BP 118/82
[2020-04-08 10:22] VITALS: BP 118/82
--- NOTE | 2020-04-08 13:28 | OPERATIVE REPORT ---
DATE OF SERVICE: 04/08/2020 PREOPERATIVE DIAGNOSIS: Change in bowel habits. POSTOPERATIVE DIAGNOSIS: Normal colon. PROCEDURE: Colonoscopy. SURGEON: Ellie Olivia DO ANESTHESIA: Per MDA. ESTIMATED BLOOD LOSS: None. COMPLICATIONS: None. INDICATIONS: The patient is a 39-year-old female with change in bowel habits. She understands risks and benefits of procedure and wished to proceed with procedure. Consent was signed in the chart. DESCRIPTION OF PROCEDURE: The patient was taken to the endoscopy suite, placed in left lateral recumbent position. Timeout was performed. Digital rectal exam was performed. There were no palpable polyps, masses or ulcerations. Scope was inserted in the rectum, advanced all the way to cecum with minimal difficulty. Prep was adequate. The scope was then inserted through the ileocecal valve, the ileum had normal appearance. Scope was retracted back. No polyps, masses or ulcerations in the cecum, ascending, transverse, descending and sigmoid colon. Once in the rectum, scope was retroflexed noting no other pathology. Scope was returned to its normal position, slowly withdrawn until completely removed. The patient tolerated procedure well without any complications. She was taken to recovery room in stable condition. RECOMMENDATIONS: The patient will need repeat colonoscopy per routine screening guidelines. Any issues before that be seen at that time. Job ID: [id number] DocumentID: [id number] Dictated Date: 04/08/2020 09:46:58 Diamond Sander Date: 04/08/2020 13:27:37 Dictated By: ELLIE OLIVIA DO
--- NOTE | 2020-04-08 14:18 | Anesthesia-General Post-Op ---
MAC Patient Condition Mental Status/LOC: Same as Preop Cardiovascular: Satisfactory Nausea/Vomiting: Absent Respiratory: Satisfactory Pain: Controlled Complications: Absent Post Op Complications Complications None Follow Up Care/Instructions Patient Instructions None needed. Anesthesiology Discharge Order Discharge Order Patient was seen this morning after the procedure and she was doing well, no complaints, stable vital signs, no apparent adverse anesthesia problems. HOMA AHUJA DO Apr 08, 2020 14:18
== END 2020-04-08 10:20 | disposition home or self-care (01) ==
LOC: ENDO 07:51
PROVIDERS: ATTEND Surgery
DX: R19.4 Change in bowel habit (principal); F41.9 Anxiety disorder, unspecified; Z79.899 Other long term (current) drug therapy; Z91.040 Latex allergy status

== ENCOUNTER → 2020-05-06 | Outpatient (CLI) | payer BC ==
--- NOTE | 2020-05-06 18:55 | Diagnostic Imaging Report ---
EXAM: Right wrist radiograph EXAM DATE: 05/06/2020 COMPARISON: None. HISTORY: Right wrist swelling and cyst. TECHNIQUE: 3 views of the right wrist. FINDINGS: No acute fracture, dislocation, or destructive osseous process. Soft tissues are normal. Joint spaces are normal. IMPRESSION: No acute osseous abnormality of the right wrist. No abnormal soft tissue finding. Dictated by: Dictated on workstation # [id number]
== END ==
LOC: RAD 18:01
PROVIDERS: ATTEND Internal Medicine
DX: M89.9 Disorder of bone, unspecified (principal); M25.431 Effusion, right wrist
CPT/HCPCS: 73110

== ENCOUNTER → 2021-03-03 | Outpatient (CLI) | payer BC ==
[~2021-03-03] MED LIST changes: -DCS100C PO; +DOCU-239 PO
[2021-03-03 11:34] LABS: HEMATOCRIT 41 % (35-52); HEMOGLOBIN 13.9 g/dL (11.5-16.0); MEAN CORPUSCULAR HEMOGLOBIN 32 pg (25-34); MEAN CORPUSCULAR HGB CONC 34 g/dL (32-36); MEAN CORPUSCULAR VOLUME 94 fL (80-99); MEAN PLATELET VOLUME 10.2 fL (9.0-12.2); PLATELET COUNT 224 10^3/uL (130-400); WHITE BLOOD COUNT 5.9 10^3/uL (4.3-11.0)
[2021-03-03 11:55] LABS: ALBUMIN 4.1 GM/DL (3.2-4.5); BILIRUBIN,TOTAL 0.5 MG/DL (0.1-1.0); CALCIUM 9.3 MG/DL (8.5-10.1); CREATININE SERUM 0.96 MG/DL (0.60-1.30); POTASSIUM 3.7 MMOL/L (3.6-5.0); TOTAL PROTEIN 6.5 GM/DL (6.4-8.2)
[2021-03-03 12:08] LABS: ERYTHROCYTE SEDIMENTATION RATE 6 MM/HR (0-20)
--- NOTE | 2021-03-03 12:21 | Diagnostic Imaging Report ---
INDICATION: ABD PAIN COMPARISON: 02/14/2018 FINDINGS: Supine and upright views of the abdomen show a nondistended bowel gas pattern. No abnormal air fluid levels or free intraperitoneal air is seen. No abnormal extraosseous calcifications are seen. Bony and soft tissue structures are within normal limits. No organomegaly is identified. Accompanying upright chest shows normal heart size and pulmonary vascularity. The lungs are well aerated and clear. The mediastinum is normal in appearance. IMPRESSION: 1. No bowel obstruction or free air. 2. Normal chest. No pneumonia or pulmonary edema. Dictated by: Dictated on workstation # [id number]
[2021-03-03 12:25] LABS: BILIRUBIN,URINE NEGATIVE (NEGATIVE); CLARITY,URINE CLEAR; COLOR,URINE YELLOW; GLUCOSE, URINE (UA) NEGATIVE (NEGATIVE); KETONES,URINE NEGATIVE (NEGATIVE); LEUKOCYTE ESTERASE ,URINE NEGATIVE (NEGATIVE); NITRITE,URINE NEGATIVE (NEGATIVE); PH,URINE 6.5 (5-9); PROTEIN,URINE NEGATIVE (NEGATIVE)
[2021-03-03 12:38] LABS: RBC,URINE RARE /HPF; WBC,URINE 0-2 /HPF
[2021-03-03 12:39] LABS: BACTERIA,URINE FEW /HPF
== END ==
LOC: RAD 11:09
PROVIDERS: ATTEND Internal Medicine
DX: R10.9 Unspecified abdominal pain (principal); R11.2 Nausea with vomiting, unspecified
CPT/HCPCS: 36415; 74022; 80053; 81000; 82150; 83690; 85027; 85652; 87088

== ENCOUNTER → 2021-06-04 | Outpatient (CLI) | payer BC ==
[2021-06-04 08:33] LABS: BASOPHILS % (AUTO) 0 % (0-10); EOSINOPHILS # (AUTO) 0.1 10^3/uL (0.0-0.3); EOSINOPHILS % (AUTO) 2 % (0-10); HEMATOCRIT 42 % (35-52); HEMOGLOBIN 14.3 g/dL (11.5-16.0); LYMPHOCYTES # (AUTO) 1.5 10^3/uL (1.0-4.0); LYMPHOCYTES % (AUTO) 28 % (12-44); MEAN CORPUSCULAR HEMOGLOBIN 32 pg (25-34); MEAN CORPUSCULAR HGB CONC 34 g/dL (32-36); MEAN CORPUSCULAR VOLUME 94 fL (80-99); MEAN PLATELET VOLUME 10.1 fL (9.0-12.2); MONOCYTES # (AUTO) 0.4 10^3/uL (0.0-1.0); MONOCYTES % (AUTO) 8 % (0-12); NEUTROPHILS # (AUTO) 3.4 10^3/uL (1.8-7.8); NEUTROPHILS % (AUTO) 62 % (42-75); PLATELET COUNT 223 10^3/uL (130-400); WHITE BLOOD COUNT 5.4 10^3/uL (4.3-11.0)
[2021-06-04 08:48] LABS: ALBUMIN 4.3 GM/DL (3.2-4.5)
[2021-06-04 08:49] LABS: CALCIUM 9.1 MG/DL (8.5-10.1)
[2021-06-04 08:50] LABS: TOTAL PROTEIN 6.8 GM/DL (6.4-8.2)
[2021-06-04 08:52] LABS: BILIRUBIN,TOTAL 0.9 MG/DL (0.1-1.0)
[2021-06-04 08:54] LABS: CREATININE SERUM 0.98 MG/DL (0.60-1.30)
[2021-06-04 09:18] LABS: FREE T4 (FREE THYROXINE) 0.75 NG/DL (0.70-1.48)
== END ==
LOC: LAB 08:02
PROVIDERS: ATTEND Internal Medicine
DX: Z00.00 Encounter for general adult medical examination without abnormal findings (principal); E03.9 Hypothyroidism, unspecified; E78.00 Pure hypercholesterolemia, unspecified; E78.1 Pure hyperglyceridemia; E53.8 Deficiency of other specified B group vitamins
CPT/HCPCS: 36415; 80053; 80061; 82607; 84439; 84443; 85025

== ENCOUNTER → 2022-05-11 | Outpatient (CLI) | payer BC ==
--- NOTE | 2022-05-12 11:18 | Diagnostic Imaging Report ---
INDICATION: Routine screening. Comparison is made with prior mammogram 03/31/2021 and 02/08/2020. 2-D and 3-D bilateral screening mammography was performed with CAD. CAD is utilized. The current study was also evaluated with a Computer Aided Detection (CAD) system. Both breasts are heterogeneously dense, limiting the sensitivity of mammography. The parenchymal pattern is stable. No mass or malignant-appearing microcalcifications are seen. Axillae are unremarkable. IMPRESSION: BI-RADS Category 1 No mammographic features suspicious for malignancy are identified. ACR BI-RADS Category 1: Negative. Result letter will be mailed to the patient. Note: At least 10% of breast cancer is not imaged by mammography. Dictated by: Dictated on workstation # [id number]
== END ==
LOC: RAD 13:30
PROVIDERS: ATTEND Internal Medicine
DX: Z12.31 Encounter for screening mammogram for malignant neoplasm of breast (principal)
CPT/HCPCS: 77063; 77067

== ENCOUNTER → 2022-06-08 | Outpatient (CLI) | payer BC ==
[2022-06-08 08:53] LABS: ALBUMIN 4.4 GM/DL (3.2-4.5); BILIRUBIN,TOTAL 0.7 MG/DL (0.1-1.0); CALCIUM 9.2 MG/DL (8.5-10.1); CREATININE SERUM 0.96 MG/DL (0.60-1.30); TOTAL PROTEIN 6.9 GM/DL (6.4-8.2)
[2022-06-08 09:14] LABS: FREE T4 (FREE THYROXINE) 0.75 NG/DL (0.70-1.48)
== END ==
LOC: LAB 08:09
PROVIDERS: ATTEND Internal Medicine
DX: Z00.00 Encounter for general adult medical examination without abnormal findings (principal); E78.1 Pure hyperglyceridemia; E78.00 Pure hypercholesterolemia, unspecified; E03.9 Hypothyroidism, unspecified; E53.8 Deficiency of other specified B group vitamins
CPT/HCPCS: 36415; 80053; 82465; 82607; 82746; 84439; 84443; 84478